=== PATIENT | male | born 1940 | race Caucasian/White ===

== ENCOUNTER → 2017-12-12 | Outpatient (CLI) | payer OTHER ==
[~2017-12-12] MED LIST: AMLODIPINE BESY10 MG PO; ASPIR 8181 MG PO; DOXYCYCLINE HYC20 MG PO; FINASTERIDE5 MG PO; LIPITOR 20 MG T20 M1 PO; METHYLPREDNISOLO4 M1 PO; NEXIUM40 MG PO; TYLENOL PM EX-1 EACH PO
== END ==
LOC: RAD 08:54
DX: M48.061 Spinal stenosis, lumbar region without neurogenic claudication (principal); M25.78 Osteophyte, vertebrae; M54.16 Radiculopathy, lumbar region

== ENCOUNTER → 2018-01-29 | Outpatient (CLI) | payer OTHER | LOC: MRI 10:38 | DX: M22.42 Chondromalacia patellae, left knee (principal); M23.304 Other meniscus derangements, unspecified medial meniscus, left knee ==

== ENCOUNTER → 2019-07-18 | Outpatient (CLI) | payer OTHER | LOC: SJCVCIMAG 10:02 | DX: I08.8 Other rheumatic multiple valve diseases (principal); I11.9 Hypertensive heart disease without heart failure; I65.23 Occlusion and stenosis of bilateral carotid arteries; E78.2 Mixed hyperlipidemia ==

== ENCOUNTER → 2020-02-06 | Outpatient (CLI) | payer OTHER | LOC: SJCVCIMAG 01-23 07:40 | PROVIDERS: ATTEND Internal Medicine | DX: I65.23 Occlusion and stenosis of bilateral carotid arteries (principal); R00.1 Bradycardia, unspecified; R93.1 Abnormal findings on diagnostic imaging of heart and coronary circulation; I35.0 Nonrheumatic aortic (valve) stenosis; I10 Essential (primary) hypertension; E78.2 Mixed hyperlipidemia ==

== ENCOUNTER → 2020-08-11 | Outpatient (CLI) | payer OTHER | LOC: SJCVCIMAG 07:34 | PROVIDERS: ATTEND Internal Medicine | DX: R00.1 Bradycardia, unspecified (principal); I08.8 Other rheumatic multiple valve diseases; I10 Essential (primary) hypertension; E78.5 Hyperlipidemia, unspecified; R93.1 Abnormal findings on diagnostic imaging of heart and coronary circulation; I65.23 Occlusion and stenosis of bilateral carotid arteries; E78.2 Mixed hyperlipidemia; G43.909 Migraine, unspecified, not intractable, without status migrainosus; Z79.899 Other long term (current) drug therapy; Z87.891 Personal history of nicotine dependence; Z72.89 Other problems related to lifestyle ==

== ENCOUNTER → 2021-02-10 | Outpatient (CLI) | payer OTHER | LOC: SJCVC 14:51 | PROVIDERS: ATTEND Internal Medicine | DX: R00.1 Bradycardia, unspecified (principal); R93.1 Abnormal findings on diagnostic imaging of heart and coronary circulation; I35.0 Nonrheumatic aortic (valve) stenosis; I10 Essential (primary) hypertension; I65.23 Occlusion and stenosis of bilateral carotid arteries; E78.5 Hyperlipidemia, unspecified; Z79.899 Other long term (current) drug therapy; Z87.891 Personal history of nicotine dependence ==